=== PATIENT | female | born 2000 | race Two or more races ===

== ENCOUNTER 2024-10-28 10:05 | Outpatient (CLI) | payer MEDICAID, SELFPAY ==
[2024-10-28 14:54] LABS: Chlamydia DNA Amplified* NOT DETECTED (No Detected); GC DNA Amplified* NOT DETECTED (No Detected)
[2024-11-04 11:26] LABS: Pap Test Digital Imaging Done
== END 2024-10-28 10:06 | disposition home or self-care (01) ==
PROVIDERS: Visit Provider Obstetrics & Gynecology
DX: E11.9 Type 2 diabetes mellitus without complications (principal); N93.9 Abnormal uterine and vaginal bleeding, unspecified; Z11.3 Encounter for screening for infections with a predominantly sexual mode of transmission; Z12.4 Encounter for screening for malignant neoplasm of cervix
CPT/HCPCS: 80061; 83498; 84146; 84270; 84402; 84403; 84443; 87491; 87591; 87624; 87625; 88141; 88142; 88175

== ENCOUNTER 2024-10-29 07:13 | Outpatient (CLI) | payer OTHER, SELFPAY ==
--- NOTE | 2024-10-29 07:15 | CRLHL7_ITS ---
For Patients: As a result of the Century Cures Act, medical imaging exams and procedure reports are released immediately into your electronic medical record. You may view this report before your referring provider. If you have questions, please contact your health care provider. CLINICAL HISTORY: Who called you IUD placed TECHNIQUE: Real time, ramos scale images were acquired of the pelvis using a transabdominal and transvaginal approach. Color Doppler analysis was performed of the ovaries. FINDINGS: The uterus measures 5.6 x 3.3 x 4.2 centimeters. Endometrium measures 5 millimeters. IUD in the endometrial cavity in appropriate position. Ovaries are unremarkable. Right ovary measures 4.3 x 2 x 1.9 centimeters left ovary measures 2.7 x 1.9 x 2.2 centimeters blood flow to both ovaries. IMPRESSION: : IUD In the endometrial cavity in appropriate position. Dictated by Eli Gaffney MD @ 10/31/2024 1:17:25 PM (Electronically Signed)
== END 2024-10-29 07:14 | disposition home or self-care (01) ==
PROVIDERS: Visit Provider Obstetrics & Gynecology
DX: N93.9 Abnormal uterine and vaginal bleeding, unspecified (principal); R93.89 Abnormal findings on diagnostic imaging of other specified body structures; Z30.431 Encounter for routine checking of intrauterine contraceptive device
CPT/HCPCS: 76830; 76856

== ENCOUNTER 2024-12-02 12:09 | Outpatient (CLI) | payer BC, SELFPAY ==
[2024-12-02 22:55] LABS: Bacterial Vaginosis* Negative (Negative); Candida glab/krus NOT DETECTED (No Detected)
== END 2024-12-02 12:10 | disposition home or self-care (01) ==
PROVIDERS: Visit Provider Obstetrics & Gynecology
DX: N89.8 Other specified noninflammatory disorders of vagina (principal); R30.0 Dysuria
CPT/HCPCS: 81513; 87086; 87481; 87661